=== PATIENT | female | born 1970 | race Caucasian/White ===

== ENCOUNTER 2017-01-27 14:43 | Emergency (ER) | payer OTHER ==
[2017-01-27] MEDS ORDERED: TORAdol 30 mg Injection IM ONE (14:56)
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
[2017-01-27] MEDS ORDERED: TORAdol 30 mg Injection ONE (14:59)
[2017-01-27 16:10] VITALS: BP 115/58; PULSE 87; O2SAT 97
--- NOTE | 2017-01-27 20:46 | XRAY ---
Indication: Lateral pain following twisting injury. Comparison: None 3 views of the left ankle demonstrates anterolateral soft tissue swelling without acute fracture or dislocation. Small heel spurs. Well-circumscribed medial/lateral malleolar ossifications and anterior inferior to the calcaneus either degenerative versus old injury.
== END 2017-01-27 16:15 | disposition home or self-care (01) ==
LOC: ED 14:43
DX: S93.402A Sprain of unspecified ligament of left ankle, initial encounter (principal); W17.2XXA Fall into hole, initial encounter
CPT/HCPCS: 73610; 96372; 99283; J1885